=== PATIENT | female | born 1985 | race Caucasian/White ===

== ENCOUNTER → 2016-10-27 | Outpatient (CLI) | payer BC ==
[~2016-10-27] MED LIST: BCPILLS PO; LXP/20 PO
[2016-10-30 13:59] LABS: CHLAMYDIA TRACH RNA*** NOT DETECTED (NOT DETECTED); GC (NEIS GONORRHOEAE)RNA** NOT DETECTED (NOT DETECTED)
== END | disposition home or self-care (01) ==
LOC: C.LABSPEC 17:46
PROVIDERS: ATTEND Physician Assistant
DX: Z11.3 Encounter for screening for infections with a predominantly sexual mode of transmission (principal)

== ENCOUNTER → 2017-01-01 | Outpatient (CLI) | payer BC | END | disposition home or self-care (01) | LOC: C.PAPS 13:18 | PROVIDERS: ATTEND Obstetrics & Gynecology | DX: Z01.419 Encounter for gynecological examination (general) (routine) without abnormal findings (principal) ==

== ENCOUNTER → 2017-06-17 | Outpatient (CLI) | payer OTHER ==
[~2017-06-17] MED LIST changes: +GADAVIST IV PRN
--- NOTE | 2017-06-17 10:21 | DIAGNOSTIC IMAGING REPORT ---
CERVICAL SPINE COMBO HISTORY: Peripheral neuropathy. Pain. M54.12 Cervical [id number] Abnormal MRI, cervical spinep TECHNIQUE: Multiplanar multisequence MRI of the cervical spine was performed both before and after the use of intravenous contrast. COMPARISON STUDY: 05/13/2016 FINDINGS: Unremarkable signal characteristics of the vertebral bodies. Mild disc desiccation C6-C7 and to a lesser extent C5-C6. Unremarkable signal characteristics of the cervical cord. No significant postcontrast enhancement. C2-C3: No significant central canal or neural foraminal narrowing. C3-C4: No significant central canal or neural foraminal narrowing. C4-C5: No significant central canal or neural foraminal narrowing. C5-C6: Minimal broad-based disc bulge. No significant impact upon the cervical cord. Mild narrowing of the neuroforamina bilaterally. C6-C7: Broad-based left central disc herniation. Moderate impact left anterior cervical cord. Considerable narrowing left and to a lesser extent right neural foramina. C7-T1: No significant central canal or neural foraminal narrowing. IMPRESSION: 1. Similar study compared to the prior examination of 05/13/2016. 2. Broad-based left central disc herniation C6-C7 with moderate impact upon the cervical cord and significant narrowing of the neuroforamina bilaterally. 3. Broad-based bulging disc C5-C6 with mild/moderate narrowing of the neuroforamina primarily in the left. 4. No abnormal postcontrast enhancement. 5. No major change from the prior study. The above report was generated using voice recognition software. It may contain grammatical, syntax or spelling errors. Electronically signed by: Sergio Lockett M.D. 06/17/2017 10:20 AM Dictated Date/Time: 06/17/2017 10:08 AM
== END | disposition home or self-care (01) ==
LOC: C.MRIBC 09:02
PROVIDERS: ATTEND Psychiatry & Neurology Neurology
DX: R93.7 Abnormal findings on diagnostic imaging of other parts of musculoskeletal system (principal); M50.223 Other cervical disc displacement at C6-C7 level; M48.02 Spinal stenosis, cervical region